=== PATIENT | female | born 1965 | race Caucasian/White ===

== ENCOUNTER 2016-09-11 17:25 | Emergency (ER) | payer BC ==
[~2016-09-11] VITALS: Ht 165.1 cm; Wt 56.8 kg
[2016-09-11 17:58] VITALS: Ht 165.1 cm; Wt 56.8 kg
[2016-09-11] MEDS ORDERED: ONDANSETRON (ODT) 4 MG TAB ODT STA (17:59)
[2016-09-11] MEDS ORDERED: HYDROCODONE/APAP (10/325) TAB PO ONE (18:00)
--- NOTE | 2016-09-11 18:51 | RADRPT ---
PROCEDURE: CT brain without contrast CLINICAL INDICATION: Fall, head pain TECHNIQUE: CT of the brain without contrast performed on a multidetector CT scanner, with multiplan ar reformats. One or more of the following dose reduction techniques were used: Automated exposure control, adjustment in mA and / or kV according to patient size, use of iterative reconstructive natividad hnique. CTDIvol = 45 mGy; DLP = 720 mGy-cm. COMPARISON: None available FINDINGS: No acute intracranial hemorrhage is identified. No extra-axial fluid collection is seen. There is no mass effect. No midline shift is identified. The ventricles and sulci are mildly enlarged compatible with volume loss. There are minimal areas of hypodensity in the periventricular - deep white matter which are nonspeci fic but suggestive of chronic small vessel ischemic changes. Leon-white differentiation is preserve d. Atherosclerotic calcifications of the intracranial internal carotid arteries are noted. Calvarium and skull base are intact. Mastoid air cells and imaged paranasal sinuses grossly clear. IMPRESSION: 1. No evidence of acute intracranial pathology. 2. Mild volume loss, with minimal chronic small vessel ischemic changes. RPTAT: HESO .Lucas Gunn MD, MD Date Time Electronically viewed and signed by .Lucas Gunn MD, on 09/11/2016 18:51 .O/
--- NOTE | 2016-09-11 18:58 | RADRPT ---
PROCEDURE: CT cervical spine without contrast. CLINICAL INDICATION: Fall, neck pain TECHNIQUE: CT of the cervical spine without contrast was performed on a multidetector CT scanner, w ith multiplanar reformats. One or more of the following dose reduction techniques were used: Automa mayank exposure control, adjustment in mA and / or kV according to patient size, use of iterative recon structive technique. CTDIvol = 22 mGy and DLP = 553 mGy-cm. COMPARISON: None available. FINDINGS: No fracture or dislocation is identified. There is straightening of the lordosis of the upper - mid cervical spine. Alignment is intact. The vertebral bodies are grossly maintained in height. The re are anterior atlantoaxial joint degenerative changes and anterior osteophytes at C3-4 through C6- 7 there is disk space narrowing, moderate - severe at C4-5 and C5-6. C2-3: There is mild posterior disk bulging without central canal stenosis. There is no foraminal n arrowing. C3-4: There is a mild posterior disk osteophyte with mild central canal stenosis. There is no fora tariq narrowing. C4-5: There is a posterior disk/osteophyte with mild central canal stenosis. There are uncovertebra l osteophytes and facet arthropathy with mild-moderate right, mild left foraminal narrowing. C5-6: There is a posterior disk/osteophyte with mild central canal stenosis. There are uncovertebra l osteophytes and facet arthropathy with moderate to severe right, moderate left foraminal narrowing . C6-7: No disk bulge or herniation is seen. There is facet arthropathy. There is no central canal stenosis or foraminal narrowing. C7-T1: No disk bulge or herniation is seen. There is facet arthropathy. There is no central canal stenosis or foraminal narrowing. IMPRESSION: 1. No fracture/dislocation. 2. Cervical spondylosis/degenerative enthesopathy, with multilevel mild central canal stenoses, and foraminal narrowing detailed above. RPTAT: HESO .Lucas Gunn MD, Date Time Electronically viewed and signed by .Lucas Gunn MD, on 09/11/2016 18:57 .O/
[2016-09-11] MEDS ORDERED: KETOROLAC 30 MG INJ IM STA (18:59)
--- NOTE | 2016-09-11 19:23 | ERD ---
ER Documentation Chief Complaint Date/Time DATE: 09/11/16 TIME: 19:20 Chief Complaint BIBA SYNCOPAL EPISODE WHILE PLAYING BASEBALL IN THE HEAT HPI Patient is a 51-year-old female with syncope, diabetes, and SVT who presents with syncope. The patient was brought in by ambulance. She said that she was playing baseball in the heat and passed out. This happened just prior to arrival. She is complaining of headache, right rib pain, and right-sided hand pain. She had the rib pain prior to the syncopal event today because she said that she fell off of her bed and hit the ground a few weeks ago. She has had multiple syncope events in the past. Upon review of old medical records this is the patient's first visit to [facility] but review of the emergency department information exchange system shows multiple visits to [facility] emergency department. Review of the [employer]s database shows multiple narcotic and benzodiazepine prescriptions filled by various doctors. The patient was requesting Dilaudid IV despite my offer to give her [place] by mouth. ROS All systems reviewed and are negative except as per history of present illness. Allergies Allergies: Coded Allergies: No Known Allergy (Unverified , 09/11/16) PMhx/Soc History of Surgery: Yes (SPINE SURGERY,OPEN HEART SX, APPENDECTOMY) Anesthesia Reaction: No Hx Neurological Disorder: No Hx Respiratory Disorders: Yes (PE) Hx Cardiac Disorders: No Hx Psychiatric Problems: No Hx Miscellaneous Medical Probl: Yes (DVT,DM) Hx Alcohol Use: No Hx Substance Use: No Hx Tobacco Use: No Smoking Status: Never smoker FmHx Family History: diabetes Physical Exam Vitals Vital Signs Date Time Temp Pulse Resp B/P Pulse Ox O2 Delivery O2 Flow Rate FiO2 09/11/16 18:50 98.4 84 18 118/83 100 Room Air 09/11/16 17:58 98.4 85 20 115/90 100 Physical Exam Const: Moderate distress secondary to pain Head: Atraumatic Eyes: Normal Conjunctiva ENT: Normal External Ears, Nose and Mouth. Neck: Full range of motion..~ No meningismus. Resp: Clear to auscultation bilaterally Cardio: Regular rate and rhythm, no murmurs Abd: Soft, non tender, non distended. Normal bowel sounds Skin: Skin breakdown to the bilateral upper extremities which is chronic Back: No midline or flank tenderness Ext: No cyanosis, or edema, 2+ upper extremity pulses bilaterally Neur: Awake and alert, cranial nerves II through XII are intact, no slurred speech, strength is 5 out of 5 in all 4 extremities Psych: Normal Mood and Affect Results 24 hrs Laboratory Tests Test 09/11/16 18:11 Bedside Glucose 86mg/dL Current Medications Medications (Trade) Dose Ordered Sig/Harpal Route PRN Reason Start Time Stop Time Status Last Admin Dose Admin Acetaminophen/ Hydrocodone Bitart ([place] (10)) 1 tab ONCE ONCE PO 09/11/16 18:00 09/11/16 18:01 DC 09/11/16 18:12 Ondansetron HCl (Zofran Odt) 4 mg ONCE STAT ODT 09/11/16 17:59 09/11/16 18:00 DC 09/11/16 18:12 Ketorolac Tromethamine (Toradol) 30 mg ONCE STAT IM 09/11/16 18:59 09/11/16 19:00 DC 09/11/16 19:15 Procedures/MDM EKG read by me: Rate/Rhythm: Regular rate and rhythm at a normal rate Intervals: Normal Impression: No evidence of ischemia or arrhythmia Chest X-ray 1V Interpreted by me: Soft Tissue: No acute abnormalities Bones: No acute abnormalities Mediastinum/Cardiac Silhouette/Lungs: Pacer in place, no pneumothorax or pneumonia or rib fracture seen CT brain shows no skull fracture or intracranial hemorrhage per radiology. CT cervical spine shows no fracture per radiology. Patient is a 51-year-old female who presents with syncope. Her Accu-Chek, EKG, chest x-ray, CT scan of the brain, and CT cervical spine are basically negative. I believe her syncope was likely vasovagal and not a significant cardiac arrhythmia such as ventricular fibrillation or ventricular tachycardia. She has no epicardial hypoxia and I doubt pneumonia, pneumothorax, or pulmonary embolism. I doubt acute coronary syndrome or aortic dissection. The patient was given [place] and Toradol however she was requesting IV Dilaudid. I do believe there is an element of pain seeking behavior given review of the cures database and the fact that she was very upset when I told her I would not give her Dilaudid. She will be discharged and can follow-up with her primary doctor within 24-48 hours. She can follow-up with her pain management doctor for her chronic pain. Departure Diagnosis: Primary Impression: Syncope Syncope type: unspecified Qualified Code: R55 - Syncope, unspecified syncope type Additional Impression: Chronic pain Chronic pain type: other chronic pain Qualified Code: G89.29 - Other chronic pain Condition: Fair Patient Instructions: Causes of Syncope Referrals: Your doctor Additional Instructions: Call your primary care doctor TOMORROW for an appointment during the next 1-2 days.See the doctor sooner or return here if your condition worsens before your appointment time. GILDARDO CHAUHAN MD Sep 11, 2016 19:23
--- NOTE | 2016-09-11 19:47 | RADRPT ---
PROCEDURE: XR Chest. CLINICAL INDICATION: Pain status post fall TECHNIQUE: AP Portable chest. COMPARISON: None available FINDINGS: The soft tissues and bones are remarkable for a left precordial pacemaker. The patient is status po st median sternotomy and heart surgery. No focal infiltrates, masses or effusions are present. The heart size and the mediastinum is normal. No pleural effusions or pneumothorax is present. IMPRESSION: 1. Left precordial pacemaker and status post median sternotomy. 2. No radiographic evidence for acute cardiopulmonary disease RPTAT: HDC .Yolanda Triana MD, Date Time Electronically viewed and signed by .Yolanda Triana MD, MD on 09/11/2016 19:47 .C/
[2016-09-11 19:56] VITALS: BP 122/79; PULSE 82; RESP 18; TEMP 98.5
== END 2016-09-11 19:59 | disposition home or self-care (01) ==
LOC: E/R 17:25
DX: R55 Syncope and collapse (principal); G89.29 Other chronic pain; E11.9 Type 2 diabetes mellitus without complications
CPT/HCPCS: 70450; 71010; 72125; 82962; 93005; 96372; 99285; J1885